=== PATIENT | female | born 1930 | race Caucasian/White ===

== ENCOUNTER 2019-02-13 17:38 | Inpatient (IN) | payer OTHER, BC ==
--- NOTE | 2019-02-13 19:16 | PDOC ---
History of Present Illness - General Chief Complaint: Shortness of Breath Stated Complaint: SHORTNES OF BREATH Time Seen by Provider: 02/13/19 19:16 History Source: Patient, Family - History of Present Illness Initial Comments: 02/13/19 19:57 Patient is an 88 year old female with PMH of CHF (diagnosed in May 2018), Afib (on eliquis), DMII, HTN, HLD, dementia, depression who presents with SOB, ENRIQUE, and orthopnea since yesterday. At baseline, pt lives at home with her and is able to ambulate and complete ADLs on her own. Yesterday evening , after Thanksgiving dinner, pt became progressively short of breath and began complaining of epigastric pain. Today, pt was unable to ambulate >10 feet without stopping to catch her breath. Her son at bedside reports that she could not complete full sentences. She requires at least two pillows when laying down , or turns to her side to prevent dyspnea. She has BL LE swelling at baseline, but pt and her son report her legs are more swollen that usual. Pt also complains of epigastric pain that is dull and constant. She denies any chest pain, palpitations, lightheadedness, fever, nausea, vomiting. Pt was diagnosed with CHF in May after having a similar episode. Lehr Operator is Dr. Alexander (last seen 3 months ago). She takes 40mg lasix daily, however she has not taken her meds for 2 days because she "forgot". She has not had any hospitalizations for CHF since her diagnosis. Denies hx of AK, stroke, DVT, PE. Surgeries: denies Allergies: NKDA PCP: Dr. Santiago Cardio: Dr. Alexander Past History - Past Medical History Allergies/Adverse Reactions: Allergies Allergy/AdvReac Type Severity Reaction Status Date / Time No Known Allergies Allergy Verified 02/14/19 00:17 Home Medications: Ambulatory Orders Alprazolam 0.25 mg PO HS 02/14/19 Apixaban [Eliquis] 5 mg PO BID 02/14/19 Diltiazem HCl [Diltiazem 24Hr ER] 240 mg PO DAILY 02/14/19 Donepezil HCl [Aricept -] 10 mg PO DAILY 02/14/19 Glimepiride [Amaryl -] 4 mg PO BID 02/14/19 Lisinopril [Prinivil] 5 mg PO DAILY 02/14/19 Metformin HCl [Glucophage] 500 mg PO BID 02/14/19 Potassium Chloride [K-Tab ER] 20 meq PO BID 02/14/19 Saxagliptin HCl [Onglyza] 5 mg PO DAILY 02/14/19 Sertraline HCl [Zoloft -] 50 mg PO BID 02/14/19 Azithromycin 250 mg PO DAILY 2 Days #2 tablet 02/16/19 Cefpodoxime Proxetil [Vantin -] 200 mg PO Q12H 2 Days #4 tablet 02/16/19 Furosemide [Lasix -] 40 mg PO BID@0600,1400 #60 tablet 02/16/19 Cardiac Disorders: Yes COPD: No Diabetes: Yes HTN: Yes Hypercholesterolemia: Yes - Psycho Social/Smoking Cessation Hx Smoking History: Never smoked Review of Systems - Review of Systems Able to Perform ROS?: Yes Is the patient limited Turkmen proficient: Yes Constitutional: No: Symptoms Reported, See HPI, Chills, Diaphoresis, Fever, Loss of Appetite, Malaise, Night Sweats, Weakness, Weight Stable, Unintentional Wgt. Loss, Unexplained wgt Loss, Other HEENTM: No: Symptoms Reported, See HPI, Eye Pain, Blurred Vision, Tearing, Recent change in vision, Double Vision, Cataracts, Ear Pain, Ocular Prothesis, Ear Discharge, Nose Pain, Nose Congestion, Tinnitus, Nose Bleeding, Hearing Loss , Throat Pain, Throat Swelling, Mouth Pain, Dental Problems, Difficulty Swallowing, Mouth Swelling, Other Respiratory: Yes: Orthopnea, Shortness of Breath, SOB with Exertion, SOB at Rest. No: Symptoms reported, See HPI, Cough, Stridor, Wheezing, Productive cough, Hemoptysis, Other Cardiac (ROS): Yes: Edema. No: Symptoms Reported, See HPI, Chest Pain, Irregular Heart Rate, Lightheadedness, Palpitations, Syncope, Chest Tightness, Other ABD/GI: Yes: Abdominal cramping. No: Symptoms Reported, See HPI, Abdominal Distended, Abd. Pain w/ defecation, Blood Streaked Bowels (epigastric), Constipated, Diarrhea, Difficulty Swallowing, Nausea, Poor Appetite, Poor Fluid Intake, Rectal Bleeding, Vomiting, Indigestion, Tarry Stools, Other Musculoskeletal: No: Symptoms Reported, See HPI, Back Pain, Gout, Joint Pain, Joint Swelling, Muscle Pain, Muscle Weakness, Neck Pain, Joint Stiffness, Other Neurological: No: Symptoms reported, See HPI, Headache, Numbness, Paresthesia, Pre-Existing Deficit, Seizure, Tingling, Tremors, Weakness, Unsteady Gait, Ataxia, Dizziness, Other *Physical Exam - Vital Signs Last Vital Signs Temp Pulse Resp BP Pulse Ox 97.8 F 122 H 18 156/99 98 02/13/19 17:53 02/13/19 17:53 02/13/19 17:53 02/13/19 17:53 02/13/19 17:53 - Physical Exam General Appearance: Yes: Nourished, Appropriately Dressed. No: Apparent Distress HEENT: positive: EOMI, MACK, Normal ENT Inspection, Normal Voice, Symmetrical, Pharynx Normal Neck: positive: Trachea midline, Normal Thyroid, Supple. negative: Tender Respiratory/Chest: positive: Crackles, Wheezing, Dullness. negative: Chest Tender, Respiratory Distress, Accessory Muscle Use Cardiovascular: positive: Edema, JVD, Murmur, Tachycardia Vascular Pulses: Dorsalis-Pedis (R): 2+, Doralis-Pedis (L): 2+ Gastrointestinal/Abdominal: positive: Normal Bowel Sounds, Tender (epigastric), Soft. negative: Distended, Hepatomegaly Musculoskeletal: negative: CVA Tenderness Extremity: positive: Pedal Edema (3+), Other (Chronic skin changes, discoloration). negative: Calf Tenderness Neurologic: positive: striker out II-XII NML intact. negative: Fully Oriented (Dementia ) ED Treatment Course - LABORATORY CBC & Chemistry Diagram: 02/16/19 06:20 02/16/19 06:20 Medical Decision Making - Medical Decision Making 02/13/19 20:21 >> Acute CHF exacerbation. - CXR - EKG, cardiac profile - CBC, CMP - Give IV lasix 02/13/19 21:22 EKG: Afib w/RVR CXR: congestion and increased opacification in left lung, possible infiltrate BNP: 10,696 Trop: 0.14, will trend Cr: 1.5 AST/ALT: 127/144 Alk P: 138 Differential dx: medication noncompliance CHF exacerbation, renal failure, AK, pulmonary congestion, infection such as pneumonia. >>Give the patient aspirin 162, diltiazem 15 mg IV push for her A. fib with RVR >>Was also given Lasix 40 mg IV >>Will give the patient her base dose of Eliquis that she has not taken it of 5 mg >>Will give ceftriaxone/azithromycin fro empiric pna coverage Requires admission for CHF exacerbation likely secondary to medication noncompliance and secondary A. fib with RVR 02/13/19 21:39 Discharge - Discharge Information Problems reviewed: Yes Clinical Impression/Diagnosis: Cellulitis Qualifiers: Site of cellulitis: unspecified site Qualified Code(s): L03.90 - Cellulitis, unspecified Condition: Improved Disposition: HOME - Admission Yes - Follow up/Referral - Patient Discharge Instructions - Post Discharge Activity
[2019-02-13] MEDS ORDERED: FUROSEMIDE 40 MG/4 ML INJECTABLE VIAL IVPUSH ONE (19:54)
[2019-02-13] MEDS ORDERED: FUROSEMIDE 40 MG/4 ML INJECTABLE VIAL ONE (20:08)
[2019-02-13 20:39] LABS: BASO % 0.2 % (0-2.0); HEMATOCRIT 32.5 % (32.4-45.2); HEMOGLOBIN 10.4 GM/dL (10.7-15.3); LYMPH % 5.4 % (8-40); MCH 26.9 pg (25.7-33.7); MCHC 31.9 g/dl (32.0-36.0); MEAN CELL VOLUME 84.4 fl (80-96); MEAN PLT VOLUME 9.1 fl (7.5-11.1); MONO % 3.7 % (3.8-10.2); NEUT % 90.7 % (42.8-82.8); PLATELET COUNT 265 K/MM3 (134-434); RBC 3.85 M/mm3 (3.60-5.2); RDW 15.8 % (11.6-15.6); WHITE BLOOD COUNT 9.8 K/mm3 (4.0-10.0)
[2019-02-13 21:06] LABS: ALBUMIN 3.3 g/dl (3.4-5.0); BILIRUBIN,TOTAL 0.9 mg/dL (0.2-1); BLOOD UREA NITROGEN 43.8 mg/dL (7-18); CREATININE 1.5 mg/dL (0.55-1.3); N-TERMINAL BNP 10696.6 pg/ml (5-450); POTASSIUM 4.8 mmol/L (3.5-5.1)
[2019-02-13] MEDS ORDERED: dilTIAZem HCL 50 MG/10 ML - 10 ML VIAL IVPUSH ONE (21:09)
[2019-02-13] MEDS ORDERED: INSULIN REGULAR HUMAN 100 UNITS/ML *VIAL IVPUSH ONE (21:27)
--- NOTE | 2019-02-13 21:30 | PDOC ---
Documentation entered by Hai Arteaga SCRIBE, acting as scribe for Jamila Duke MD. Jamila Duke MD: This documentation has been prepared by the Chandler wolf Daniel, SCRIBE, under my direction and personally reviewed by me in its entirety. I confirm that the documentation accurately reflects all work, treatment, procedures, and medical decision making performed by me. Attending Attestation - Resident Resident Name: Liane Lee - ED Attending Attestation I have performed the following: I have examined & evaluated the patient, The case was reviewed & discussed with the resident, I agree w/resident's findings & plan, Exceptions are as noted - HPI HPI: 02/13/19 19:51 The patient is an 88 year old female with a past medical history of CHF, HTN, HLD, diabetes, dementia, and questionable afib here today for evaluation of shortness of breath. As per the patients son, the patient was short of breath yesterday which worsened today. He notes that she has dyspnea on exertion and is unable to move from room to room without becoming short of breath. Patient also notes orthopnea and some upper abdominal pain. no h/o tobacco use. Allergies: NKA PCP: Lee Santiago Fios Line Installer: Marilyn Alexander 02/13/19 21:33 - Physicial Exam PE: 02/13/19 21:26 awake alert lungs with crackles at bases. increased work of breathng mild tachypnea, mild suprasternal retraction, hear irreg tachycardia. no mrg. abd soft nt nd ext bilat piting edemea. 3 + nueor alert oriented x 3. - Medical Decision Making 02/13/19 21:27 You have been no further in the something is midline and a chest x-ray 88-year- old female history of A. fib hypertension CHF here today with worsening shortness of breath exertional dyspnea orthopnea and increased work of breathing. Patient has had worsening leg edema states that she has not taken her meds for the last 48 hours did overindulge yesterday during giving today states that she was having a hard time speaking even completing sentences at which time she came to the hospital. Denies any fevers and chills no cough no chest pain no other current complaints next. no h/o pe or dvt. My exam patient has bilateral crackles at the lung bases and noted 3+ pitting edema bilateral lower extremities was found to be in A. fib with RVR with heart rate in 148 Differential includes medication noncompliance CHF exacerbation lecture abnormality renal failure SD pulmonary congestion infection such as pneumonia. Plan EKG chest x-ray CBC CMP BNP troponin. Give the patient aspirin 162 was given diltiazem 15 mg IV push for her A. fib with RVR was also given Lasix 40 mg IV will give the patient her base dose of Eliquis that she has not taken it of 5 mg will likely require admission for CHF exacerbation likely secondary to medication noncompliance and secondary A. fib with RVR pcp dr urias. biometrics instructor dr Rosas 02/13/19 21:32 pt cxr with pulm edema. also increased opacification left lung possible infiltrate. will treat with abx. ceftriaxone and azithromycin. 02/13/19 21:33 Heart Score/ECG Review #1 General ECG Interpretation: Normal Intervals, No acute ischemic changes Compared to previous ECG there are: Other (afib with RVR rate 144 bpm, left axis. TWI I, AVL,)
[2019-02-13] MEDS ORDERED: AZITHROMYCIN IVPB 500 MG/250 ML BAG IVPB ONE ×2 (21:35→21:46)
[2019-02-13] MEDS ORDERED: CEFTRIAXONE 1 G/50 ML PREMIX 50 ML IVPB ONE (21:35)
[2019-02-13] MEDS ORDERED: APIXABAN 5 MG TABLET PO ONE (21:38)
[2019-02-13] MEDS ORDERED: APIXABAN 5 MG TABLET ONE (21:46)
[2019-02-13] MEDS ORDERED: ASPIRIN COATED 81 MG TABLET.EC ONE (21:46)
[2019-02-13] MEDS ORDERED: CEFTRIAXONE 1 GM/50 ML BAG ONE (21:47)
[2019-02-13] MEDS ORDERED: dilTIAZem HCL 125 MG/25 ML - 25 ML VIAL ONE (21:54)
[2019-02-13] MEDS: ASPIRIN COATED 81 MG TABLET.EC PO SCH (22:14)
--- NOTE | 2019-02-13 22:58 | HP ---
CHIEF COMPLAINT: Per Family: Increased weakness+SOB PCP: Dr Lee Santiago HISTORY OF PRESENT ILLNESS: Pt is an 88 y/o F with a significant past medical history of CHF (diagnosed in May 2018), Afib (on eliquis), DMII, HTN, HLD, dementia, depression who presents with SOB, ENRIQUE, and orthopnea since yesterday. Per son (healthcare proxy ) at bedside, pt since yesterday has not been able to walk to the bathroom on her own or walk up the stairs in her home; normally patient is able to do so. Family endorses that patient was hospitalized in May of this year at [facility] for similar symptoms. Of note, pt has bilateral LE edema at baseline, however her son reports that pt's legs are more swollen than usual. ER course was notable for: (1) A-Fib w/ RVR, Incomplete RBBB, Left anterior fascicular block, Vent rate 144 , QTc 498. (2) Diltiazem 15 ivpush (3) PAST MEDICAL HISTORY: per above PAST SURGICAL HISTORY: Social History: Smoking: denies Alcohol:denies Drugs: denies Allergies No Known Allergies Allergy (Unverified 02/13/19 17:58) HOME MEDICATIONS: Home Medications Medication Instructions Recorded Nifedipine 20 mg PO capsule 07/27/13 Pioglitazone Hcl 45 mg PO tablet 07/27/13 Saxagliptin HCl [Onglyza] 5 mg PO tablet 07/27/13 Sertraline HCl 25 mg PO DAILY #7 tablet 07/27/13 Valsartan [Diovan] 40 mg PO tablet 07/27/13 REVIEW OF SYSTEMS Unable to obtain 2/2 patient's mental status PHYSICAL EXAMINATION Vital Signs - 24 hr 02/13/19 02/13/19 02/13/19 17:53 19:58 21:58 Temperature 97.8 F Pulse Rate 122 H Pulse Rate [ 143 H 149 H Right Radial] Respiratory 18 19 16 Rate Blood Pressure 156/99 Blood Pressure 155/134 H 153/113 H [Left Arm] O2 Sat by Pulse 98 95 95 Oximetry (%) GENERAL: NAD HEAD: Normal with no signs of trauma. EYES: EOMI Sclera Clear EARS, NOSE, THROAT: MMM NECK: +++ JVD. LUNGS: Crackles left base HEART: Irregularly irregular, S1S2. ABDOMEN: Soft NDNT LOWER EXTREMITIES: 3+ pitting edema b/l SKIN: Warm, dry, normal turgor, no rashes or lesions noted, normal capillary refill. Laboratory Results - last 24 hr 02/13/19 02/13/19 02/13/19 20:23 20:23 20:23 WBC 9.8 RBC 3.85 Hgb 10.4 L Hct 32.5 MCV 84.4 MCH 26.9 MCHC 31.9 L RDW 15.8 H Plt Count 265 MPV 9.1 Absolute Neuts (auto) 8.9 H Neutrophils % 90.7 H Lymphocytes % 5.4 L Monocytes % 3.7 L Eosinophils % 0.0 Basophils % 0.2 Nucleated RBC % 0 Sodium 142 Potassium 4.8 Chloride 109 H Carbon Dioxide 19 L Anion Gap 14 BUN 43.8 H Creatinine 1.5 H Est GFR (CKD-EPI)AfAm 35.93 Est GFR (CKD-EPI)NonAf 31.00 Random Glucose 373 H Calcium 9.0 Total Bilirubin 0.9 AST 127 H ALT 144 H Alkaline Phosphatase 138 H Creatine Kinase 89 Troponin I 0.14 H B-Natriuretic Peptide 27643.6 H Total Protein 7.0 Albumin 3.3 L ASSESSMENT/PLAN: Pt is an 88 y/o F with a significant past medical history of CHF (diagnosed in May 2018), Afib (on eliquis), DMII, HTN, HLD, dementia, depression who presents with SOB, ENRIQUE, and orthopnea since yesterday. Acute exacerbation of dCHF 2/2 A-Fib w/ RVR -BNP 94608 -Echocardiogram -Repeat EKG -Beck insertion to monitor Is and Os -Will hold diltiazem and start a beta florina Coreg 3.25 BID. -Liver U/S to assess for etiology of elevated liver enzymes. May be secondary to dCHF or intrinsic liver disease. -1st trop 0.14. will trend. -Will place on 40 I.V Lasix -Cardiology consult. Appreciate recs. -ABG -Wells Score 1.5, very low probability of PE. -Will also add on Tylenol and Alcohol level as this is patient's first admission to hospital and cannot rule anything out at this juncture. #Atrial Fibrillation -Resume Eliquis -Tele monitoring #DM -ISS # Possible Community Acquired Pneumonia-Left Lung Infiltrate -Received Cef+Azithro in ED. -Will continue on Cef+Azithro -BCX -Urine Legionella #FEN -No Fluids -Monitor Electrolytes -Sodium Controlled Diet DVT ppx: Eliquis Dispo Tele Visit type - Emergency Visit Emergency Visit: Yes ED Registration Date: 02/13/19 Care time: The patient presented to the Emergency Department on the above date and was hospitalized for further evaluation of their emergent condition. - New Patient This patient is new to me today: Yes Date on this admission: 02/14/19 - Critical Care Critical Care patient: No ATTENDING PHYSICIAN STATEMENT I saw and evaluated the patient. I reviewed the resident's note and discussed the case with the resident. I agree with the resident's findings and plan as documented. SUBJECTIVE: OBJECTIVE: ASSESSMENT AND PLAN:
--- NOTE | 2019-02-13 23:28 | PN ---
Teaching Attending Note Name of Resident: oRmie Huerta ATTENDING PHYSICIAN STATEMENT I saw and evaluated the patient. I reviewed the resident's note and discussed the case with the resident. I agree with the resident's findings and plan as documented. SUBJECTIVE: 88 year old female with a past medical history of CHF, HTN, HLD, diabetes, dementia, and afib here today for evaluation of shortness of breath. As per the patients son, the patient was short of breath yesterday which worsened today. He notes that she has dyspnea on exertion and is unable to move from room to room without becoming short of breath. Patient also notes orthopnea and some upper abdominal pain. no h/o tobacco use. OBJECTIVE: Last Vital Signs Temp Pulse Resp BP Pulse Ox 97.8 F 149 H 16 153/113 H 95 02/13/19 17:53 02/13/19 21:58 02/13/19 21:58 02/13/19 21:58 02/13/19 21:58 GENERAL: Well developed, well nourished. Awake and alert. No acute distress.Appears to be very hard of hearing on exam HEENT: Normocephalic, atraumatic. PERRLA, EOMI. No conjunctival pallor. Sclera are non- icteric. Moist mucous membranes. Oropharynx is clear. NECK: Supple. Full ROM. No JVD. Carotid pulses 2+ and symmetric, without bruits. No thyromegaly. No lymphadenopathy. CARDIOVASCULAR: Regular rate and rhythm. No murmurs, rubs, or gallops. Distal pulses are 2+ and symmetric. PULMONARY: No evidence of respiratory distress. Lungs clear to auscultation bilaterally. No wheezing, rales or rhonchi. ABDOMINAL: Soft. Non-tender. Non-distended. No rebound or guarding. No organomegaly. Normoactive bowel sounds. MUSCULOSKELETAL Normal range of motion at all joints. No bony deformities or tenderness. No CVA tenderness. EXTREMITIES: Bilateral pedal edema2+ up to knees SKIN: Warm and dry. Normal capillary refill. No rashes. No jaundice. PSYCHIATRIC: Cooperative. Good eye contact. Appropriate mood and affect. Abnormal Lab Results 02/13/19 02/13/19 02/13/19 20:23 20:23 20:23 Hgb 10.4 L MCHC 31.9 L RDW 15.8 H Absolute Neuts (auto) 8.9 H Neutrophils % 90.7 H Lymphocytes % 5.4 L Monocytes % 3.7 L Chloride 109 H Carbon Dioxide 19 L BUN 43.8 H Creatinine 1.5 H Random Glucose 373 H AST 127 H ALT 144 H Alkaline Phosphatase 138 H Troponin I 0.14 H B-Natriuretic Peptide 95631.6 H Albumin 3.3 L Imaging studies reviewed EKGA. fib with RVR, no acute ischemic changes noted ASSESSMENT AND PLAN: 88-year-old woman with shortness of breath may be secondary to committee acquired pneumonia. Found to have large left lung opacity on chest x-ray which is likely an infectious infiltrate. Possible CHF exacerbation as patient is noted to have history of CHF. A. fib with RVR On anticoagulation at home. Elevated troponin may be secondary to demand ischemia from pneumonia or A. fib with RVR. ACS should be ruled out as patient is high risk. Admit to telemetry Carvedilol 6 mg p.o. twice daily For rate control as well as CHF management Transthoracic echono baseline echo noted Trend troponin Cardiology evaluation Continue home dose Eliquis Furosemide 40 mg IV Twice daily Salt and free water restriction SAY inhibitor #Community acquired pneumonia with left-sided infiltrate Sputum culture Blood cultures Azithromycin and ceftriaxone Supplemental oxygen via nasal cannula #DAYAN versus CKDno baseline renal function to compare to Avoid IV fluids Avoid nephrotoxins Trend renal function Renal sonogram #Transaminitismay be secondary to hepatic congestion from CHF. Should rule out alternative causes such was EtOH, Tylenol, viral hepatitis, alcoholic fatty liver disease Liver sonogram Viral hepatitis serologies Hepatic panel repeat Avoid hepatotoxins #DVT prophylaxisPatient already on Eliquis
[2019-02-14 05:47] VITALS: BMI 23.5
[2019-02-14] MEDS: FUROSEMIDE 40 MG/4 ML INJECTABLE VIAL IVPUSH SCH ×2 (06:26→10:22)
[2019-02-14] MEDS: INSULIN SLIDING SCALE (NOVOLOG) 1 VIAL SQ SCH ×4 (06:33→21:30)
[2019-02-14 06:41] LABS: ARTERIAL BLD GAS O2 SATURATION 89.9 % (95-98); ARTERIAL BLOOD GAS BASE EXCESS -2.5 meq/l (-2-2); ARTERIAL BLOOD GAS PCO2 26.6 mmHg (35-45); ARTERIAL BLOOD GAS PO2 59.3 mmHg (80-100); ARTERIAL BLOOD GAS pH 7.48 (7.35-7.45)
[2019-02-14 06:45] LABS: ALLENS TEST POSITIVE
[2019-02-14 08:01] LABS: BASO % 0.5 % (0-2.0); HEMATOCRIT 31.8 % (32.4-45.2); HEMOGLOBIN 10.2 GM/dL (10.7-15.3); LYMPH % 9.1 % (8-40); MCH 26.6 pg (25.7-33.7); MCHC 32.1 g/dl (32.0-36.0); MEAN CELL VOLUME 82.8 fl (80-96); MONO % 5.3 % (3.8-10.2); NEUT % 85.1 % (42.8-82.8); PLATELET COUNT 257 K/MM3 (134-434); RBC 3.84 M/mm3 (3.60-5.2); RDW 15.3 % (11.6-15.6); WHITE BLOOD COUNT 9.7 K/mm3 (4.0-10.0)
[2019-02-14 08:03] LABS: INR 1.71 (0.83-1.09); PROTHROMBIN TIME (PATIENT) 20.3 SEC (9.7-13.0)
[2019-02-14 08:06] LABS: ACTIVATED PTT 32.8 SECONDS (25.2-36.5)
--- NOTE | 2019-02-14 08:07 | CON.CARD ---
Consult Consult Specialty:: cardio - History of Present Illness Chief Complaint: sob History of Present Illness: 88 y/o F here with sob reports 2d of SOB, ENRIQUE, and orthopnea. unable to walk to bathroom unassisted or on stairs at home due to ENRIQUE. increase in chronic LE edema BP and HR uncontrolled in ER recent dx of CHF earlier this year--admitted at [facility] denies sob presently. denies cp, palp, syncope PMH: AFib HTN DM HPL dementia depression - Alcohol/Substance Use Hx Alcohol Use: No - Smoking History Smoking history: Never smoked Home Medications - Allergies Allergies/Adverse Reactions: Allergies Allergy/AdvReac Type Severity Reaction Status Date / Time No Known Allergies Allergy Verified 02/14/19 00:17 - Home Medications Home Medications: Ambulatory Orders Alprazolam 0.25 mg PO HS 02/14/19 Apixaban [Eliquis] 5 mg PO BID 02/14/19 Diltiazem HCl [Diltiazem ER] 240 mg PO DAILY 02/14/19 Donepezil HCl [Aricept -] 10 mg PO DAILY 02/14/19 Furosemide [Lasix -] 40 mg PO DAILY 02/14/19 Glimepiride [Amaryl -] 4 mg PO BID 02/14/19 Lisinopril [Prinivil] 5 mg PO DAILY 02/14/19 Metformin HCl [Glucophage] 500 mg PO BID 02/14/19 Potassium Chloride [K-Tab ER] 20 meq PO BID 02/14/19 Saxagliptin HCl [Onglyza] 5 mg PO DAILY 02/14/19 Sertraline HCl [Zoloft -] 50 mg PO BID 02/14/19 Family Medical History Family History: Denies (no known cmp) Review of Systems - Review of Systems Constitutional: denies: Chills, Fever Eyes: denies: Eye Pain HENT: denies: Nasal Congestion Neck: denies: Stiffness Cardiovascular: denies: Palpitations Respiratory: reports: Orthopnea. denies: Hemoptysis, Wheezing Gastrointestinal: denies: Diarrhea, Rectal Bleeding Genitourinary: denies: Burning, Hematuria Musculoskeletal: denies: Muscle Pain Integumentary: denies: Rash Neurological: denies: Numbness, Seizure, Syncope Endocrine: denies: Excessive Sweating Hematology/Lymphatic: denies: Excessive Bleeding Vital Signs: Vital Signs Temperature 97.8 F 02/14/19 03:35 Pulse Rate 125 H 02/14/19 05:47 Respiratory Rate 21 H 02/14/19 05:47 Blood Pressure 172/101 H 02/14/19 05:47 O2 Sat by Pulse Oximetry (%) 96 02/14/19 03:35 Constitutional: Yes: Well Nourished, No Distress Eyes: No: Sclera Icterus HENT: No: Nasal Congestion Neck: No: Decreased ROM Respiratory: Yes: Rales (L > R base), Wheezes (faint, L base). No: Accessory Muscle Use Gastrointestinal: Yes: Normal Bowel Sounds. No: Distention, Hepatomegaly, Palpable Mass, Tenderness Renal/: Yes: Urethral Discharge Cardiovascular: Yes: Regular Rate and Rhythm, Pulse Irregular JVD: Yes Carotid Bruit: No PMI: Non-Displaced Heart Sounds: Yes: S1, S2. No: Gallop Murmur: No: Systolic Murmur, Diastolic Murmur Musculoskeletal: Yes: Other (No kyphosis) Extremities: No: Cool, Cyanosis Edema: No Peripheral Pulses: 2+ Left Carotid, 2+ Right Carotid, 2+ Left Doralis Pedis, 2+ Right Dorsalis Pedis Integumentary: No: Jaundice Neurological: Yes: Alert. No: Seizure Psychiatric: No: Agitated - Other Data Labs, Other Data: Troponin, BNP 02/13/19 02/13/19 20:23 20:23 Troponin I 0.14 H B-Natriuretic Peptide 29141.6 H Troponin, BNP 02/13/19 02/13/19 20:23 20:23 Troponin I 0.14 H B-Natriuretic Peptide 24447.6 H Assessment/Plan ECG: AF, LAFB, LVH with repol abnormality, PVC. no ischemic changes CXR: congestive changes, L infiltrate, no effusions tele: AF 100s-120s, freq PVCs, freq NSVT acute CHF, L lung infiltrate: -prior echo, type of CHF unknown--suspect systolic given carvedilol/lisinopril regimen at home -BNP 10K here -no known CAD history. trop 0.14--f/u serial trend. ECG non-ischemic -normal temps, WBC--observe infiltrate with diuresis -start lasix 40 IV daily--monitor wts, phys exam renal insufficiency: -bun/creat 43/1.5, no baseline data currently available. will check office records -suspect cardiorenal syndrome contributing--observe trend with diuresis elevated transmainases: -? hepatic congestion -observe trend with diuresis -further w/u and plan per hospitalist Afib: -rapid HR here, ? triggering CHF -aggressive rate control: titrate carvedilol up as bp allows (9.375 bid)) -if remains rapid will change to metoprolol for better control -cont home Eliquis (5 bid)--if creatinine remains > 1.5 will need to reduce dose to 2.5 prior to discharge HTN: -titrating carvedilol (also for AF control) -same home lisinopril dose for now
[2019-02-14 08:09] LABS: ALBUMIN 3.3 g/dl (3.4-5.0); BILIRUBIN,TOTAL 0.8 mg/dL (0.2-1); BLOOD UREA NITROGEN 51.2 mg/dL (7-18); CALCIUM 8.6 mg/dL (8.5-10.1); CREATININE 1.5 mg/dL (0.55-1.3); MAGNESIUM 2.1 mg/dL (1.8-2.4); PHOSPHOROUS 4.8 mg/dL (2.5-4.9); POTASSIUM 4.8 mmol/L (3.5-5.1); TOT PROT 6.7 g/dl (6.4-8.2)
[2019-02-14] MEDS ORDERED: CARVEDILOL 6.25 MG TABLET (FP) PO SCH (10:00)
[2019-02-14] MEDS ORDERED: CARVEDILOL 3.125 MG TABLET (FP) PO SCH ×2 (10:00→10:27)
[2019-02-14] MEDS: SERTRALINE HCL 50 MG TABLET (FP) PO SCH ×2 (10:21→21:23)
[2019-02-14] MEDS: LISINOPRIL 5 MG TABLET (FP) PO SCH (10:21)
[2019-02-14] MEDS: APIXABAN 5 MG TABLET PO SCH ×2 (10:21→21:27)
[2019-02-14] MEDS: ASPIRIN COATED 81 MG TABLET.EC PO SCH (10:21)
[2019-02-14] MEDS ORDERED: CARVEDILOL 12.5 MG TABLET (FP) PO SCH (10:26)
[2019-02-14] MEDS ORDERED: INSULIN (NOVOLOG) ASPART 100 UNITS/ML 10ML VIAL ONE (11:32)
--- NOTE | 2019-02-14 14:08 | PN ---
Progress Note (short form) - Note Progress Note: SUBJECTIVE: Feels well - no complaints. Denies cough/sputum/CP/palpitations/SOB. OBJECTIVE: Afebrile, Hemodynamically Stable. AAO x 2. Last Vital Signs Temp Pulse Resp BP Pulse Ox 97.4 F L 111 H 21 H 134/92 96 02/14/19 10:00 02/14/19 10:00 02/14/19 10:00 02/14/19 10:00 02/14/19 09:00 HEENT - Atraumatic, Normocephalic. Heart - S1, S2, irregular Lungs - good air entry bilaterally Abdomen - soft, non-tender. Bowel Sounds normal. Extremities - chronic venous stasis with skin changes, edema ++ Laboratory Results - last 24 hr 02/13/19 02/13/19 02/13/19 20:23 20:23 20:23 WBC 9.8 RBC 3.85 Hgb 10.4 L Hct 32.5 MCV 84.4 MCH 26.9 MCHC 31.9 L RDW 15.8 H Plt Count 265 MPV 9.1 Absolute Neuts (auto) 8.9 H Neutrophils % 90.7 H Lymphocytes % 5.4 L Monocytes % 3.7 L Eosinophils % 0.0 Basophils % 0.2 Nucleated RBC % 0 PT with INR INR PTT (Actin FS) Anticoagulation Therapy Puncture Site ABG pH ABG pCO2 at Pt Temp ABG pO2 at Pt Temp ABG HCO3 ABG O2 Sat (Measured) ABG O2 Content ABG Base Excess Erne Test O2 Delivery Device Oxygen Flow Rate Vent Mode Vent Rate Mechanical Rate Pressure Support Vent Sodium 142 Potassium 4.8 Chloride 109 H Carbon Dioxide 19 L Anion Gap 14 BUN 43.8 H Creatinine 1.5 H Est GFR (CKD-EPI)AfAm 35.93 Est GFR (CKD-EPI)NonAf 31.00 POC Glucometer Random Glucose 373 H Calcium 9.0 Phosphorus Magnesium Total Bilirubin 0.9 AST 127 H ALT 144 H Alkaline Phosphatase 138 H Creatine Kinase 89 Troponin I 0.14 H B-Natriuretic Peptide 92997.6 H Total Protein 7.0 Albumin 3.3 L Acetaminophen Alcohol, Quantitative 02/14/19 02/14/19 02/14/19 06:00 06:00 06:05 WBC 9.7 RBC 3.84 Hgb 10.2 L Hct 31.8 L MCV 82.8 MCH 26.6 MCHC 32.1 RDW 15.3 Plt Count 257 MPV 9.0 Absolute Neuts (auto) 8.3 H Neutrophils % 85.1 H Lymphocytes % 9.1 D Monocytes % 5.3 Eosinophils % 0.0 Basophils % 0.5 Nucleated RBC % 0 PT with INR INR PTT (Actin FS) Anticoagulation Therapy Puncture Site ABG pH ABG pCO2 at Pt Temp ABG pO2 at Pt Temp ABG HCO3 ABG O2 Sat (Measured) ABG O2 Content ABG Base Excess Rene Test O2 Delivery Device Oxygen Flow Rate Vent Mode Vent Rate Mechanical Rate Pressure Support Vent Sodium Potassium Chloride Carbon Dioxide Anion Gap BUN Creatinine Est GFR (CKD-EPI)AfAm Est GFR (CKD-EPI)NonAf POC Glucometer Random Glucose Calcium Phosphorus Magnesium Total Bilirubin AST ALT Alkaline Phosphatase Creatine Kinase Troponin I B-Natriuretic Peptide Total Protein Albumin Acetaminophen <10 Alcohol, Quantitative < 3 02/14/19 02/14/19 02/14/19 06:05 06:05 06:25 WBC RBC Hgb Hct MCV MCH MCHC RDW Plt Count MPV Absolute Neuts (auto) Neutrophils % Lymphocytes % Monocytes % Eosinophils % Basophils % Nucleated RBC % PT with INR 20.30 H INR 1.71 H PTT (Actin FS) 32.8 Anticoagulation Therapy No Result Required. Puncture Site Right brachial ABG pH 7.48 H ABG pCO2 at Pt Temp 26.6 L ABG pO2 at Pt Temp 59.3 L ABG HCO3 19.7 L ABG O2 Sat (Measured) 89.9 L ABG O2 Content 12.6 ABG Base Excess -2.5 L Rene Test Positive O2 Delivery Device N/c Oxygen Flow Rate 3l Vent Mode No Result Required. Vent Rate No Result Required. Mechanical Rate No Result Required. Pressure Support Vent No Result Required. Sodium 140 Potassium 4.8 Chloride 109 H Carbon Dioxide 21 Anion Gap 11 BUN 51.2 H Creatinine 1.5 H Est GFR (CKD-EPI)AfAm 35.93 Est GFR (CKD-EPI)NonAf 31.00 POC Glucometer Random Glucose 339 H Calcium 8.6 Phosphorus 4.8 Magnesium 2.1 Total Bilirubin 0.8 AST 143 H ALT 163 H Alkaline Phosphatase 127 H Creatine Kinase Troponin I 0.22 H B-Natriuretic Peptide Total Protein 6.7 Albumin 3.3 L Acetaminophen Alcohol, Quantitative 02/14/19 02/14/19 06:28 11:28 WBC RBC Hgb Hct MCV MCH MCHC RDW Plt Count MPV Absolute Neuts (auto) Neutrophils % Lymphocytes % Monocytes % Eosinophils % Basophils % Nucleated RBC % PT with INR INR PTT (Actin FS) Anticoagulation Therapy Puncture Site ABG pH ABG pCO2 at Pt Temp ABG pO2 at Pt Temp ABG HCO3 ABG O2 Sat (Measured) ABG O2 Content ABG Base Excess Rene Test O2 Delivery Device Oxygen Flow Rate Vent Mode Vent Rate Mechanical Rate Pressure Support Vent Sodium Potassium Chloride Carbon Dioxide Anion Gap BUN Creatinine Est GFR (CKD-EPI)AfAm Est GFR (CKD-EPI)NonAf POC Glucometer 329 287 Random Glucose Calcium Phosphorus Magnesium Total Bilirubin AST ALT Alkaline Phosphatase Creatine Kinase Troponin I B-Natriuretic Peptide Total Protein Albumin Acetaminophen Alcohol, Quantitative Current Medications Generic Name Dose Route Start Last Admin Trade Name Freq PRN Reason Stop Dose Admin Alprazolam 0.25 mg 02/14/19 22:00 Xanax - PO HS DAVID Apixaban 5 mg 02/14/19 10:00 02/14/19 10:21 Eliquis - PO 5 mg BID DAVID Administration Aspirin 162 mg 02/13/19 21:45 02/14/19 10:21 Ecotrin - PO 162 mg DAILY DAVID Administration Carvedilol 9.375 mg 02/14/19 10:27 Coreg - PO BID DAVID Donepezil HCl 10 mg 02/14/19 22:00 Aricept - PO HS DAVID Furosemide 40 mg 02/14/19 05:19 02/14/19 10:22 Lasix Injection - IVPUSH Not Given DAILY DAVID Ceftriaxone Sodium 1 gm/ 50 mls @ 100 mls/hr 02/14/19 22:00 Dextrose IVPB 02/14/19 22:29 ONCE ONE Insulin Aspart 1 vial 02/14/19 07:00 02/14/19 12:41 Novolog Vial Sliding Scale - SQ 6 units ACHS DAVID Administration Protocol Insulin Detemir 10 units 02/14/19 22:00 Levemir Vial SQ HS DAVID Lisinopril 5 mg 02/14/19 10:00 02/14/19 10:21 Prinivil PO 5 mg DAILY DAVID Administration Sertraline HCl 50 mg 02/14/19 10:00 02/14/19 10:21 Zoloft - PO 50 mg BID DAVID Administration Home Medications Medication Instructions Recorded Alprazolam 0.25 mg PO HS 02/14/19 Apixaban [Eliquis] 5 mg PO BID 02/14/19 Diltiazem HCl [Diltiazem ER] 240 mg PO DAILY 02/14/19 Donepezil HCl [Aricept -] 10 mg PO DAILY 02/14/19 Furosemide [Lasix -] 40 mg PO DAILY 02/14/19 Glimepiride [Amaryl -] 4 mg PO BID 02/14/19 Lisinopril [Prinivil] 5 mg PO DAILY 02/14/19 Metformin HCl [Glucophage] 500 mg PO BID 02/14/19 Potassium Chloride [K-Tab ER] 20 meq PO BID 02/14/19 Saxagliptin HCl [Onglyza] 5 mg PO DAILY 02/14/19 Sertraline HCl [Zoloft -] 50 mg PO BID 02/14/19 ASSESSMENT/PLAN: 88 year old female with a past medical history of Dementia, CHF, HTN, HLD, DM 2 , Atrial fibrillation (on Eliquis), presented with worsening SOB and orthopnea. 1. Acute decompensation of CHF (unknown diastolic vs systolic) BNP > 10,000 CXR - cardiomegaly, congestive changes, L sided infiltrate. On Lasix 40mg daily at home, clams compliance. Responding to IV Lasix diuresis Stable respiratory status. Daily weight, I/Os. Echo requested On BB/SAY-I Cardio consult. 2. CAP CXR - L lung opacity/consolidation Afebrile, without leukocytosis Blood Cx pending Continue Ceftriaxone/Azithromycin Urine for legionella/strep Ag Sputum Cx. 3. Atrial fibrillation with RVR ECG - Atrial fibrillation with RVR, no acute changes. Continue to up-titrate Carvedilol as BP tolerates (need to clarify home med ?on cardizem at home) Continue Eliquis Troponin egression likely sec to demand due to RVR - will continue to trend. Further Ix as per Cardiology. 4. DAYAN vs CKD, suspect CKD Creat 1.5 - baseline Creat unknown Monitor renal function on IV Lasix (oral home dose Lasix held). Renal/Bladder US - normal. 5. Elevated Transaminases ?sec to Hepatic congestion US Abdomen - Mild hepatomegaly. Hepatitis panel pending. 6. Dementia with Depression - continue Alprazolam, Sertraline, Aricept. 7. DM 2 - hold Saxagliptin, Metformin, Glimepiride. Maintain on sliding scale Novolog - tier advanced due to high BGMs. 8. HTN - On Coreg and Lisinopril - continue. DVT Px - on Eliquis. Visit type - Emergency Visit Emergency Visit: Yes ED Registration Date: 02/13/19 Care time: The patient presented to the Emergency Department on the above date and was hospitalized for further evaluation of their emergent condition. - New Patient This patient is new to me today: Yes Date on this admission: 02/14/19 - Critical Care Critical Care patient: No - Discharge Referral Referred to [facility] Med P.C.: No
[2019-02-14] MEDS: ALPRAZolam 0.25 MG TABLET PO SCH (21:23)
[2019-02-14] MEDS: DONEPEZIL HCL 10 MG TABLET (FP) PO SCH (21:23)
[2019-02-14] MEDS: INSULIN (LEVEMIR) 100 UNITS/ML UNITS SQ SCH (21:27)
[2019-02-14] MEDS: AZITHROMYCIN IVPB 500 MG/250 ML BAG IVPB SCH (21:32)
[2019-02-14] MEDS ORDERED: cefTRIAXone SODIUM 1 GM VIAL ONE (21:57)
[2019-02-14] MEDS ORDERED: DEXTROSE 5%-WATER - 50 ML IVPB ONE (21:57)
[2019-02-14] MEDS ORDERED: CEFTRIAXONE 1 GM in DEXTROSE 5%-WATER - 50 ML IVPB ONE (22:00)
[2019-02-15] MEDS ORDERED: METOCLOPRAMIDE HCL 10 MG TABLET (FP) PO ONE (01:21)
[2019-02-15] MEDS: INSULIN SLIDING SCALE (NOVOLOG) 1 VIAL SQ SCH ×4 (06:01→22:31)
[2019-02-15 07:21] LABS: BLOOD UREA NITROGEN 61.2 mg/dL (7-18); CALCIUM 8.3 mg/dL (8.5-10.1); CREATININE 1.6 mg/dL (0.55-1.3); POTASSIUM 4.2 mmol/L (3.5-5.1)
[2019-02-15 08:27] LABS: ALBUMIN 2.8 g/dl (3.4-5.0); BILIRUBIN,DIRECT 0.2 mg/dL (0.0-0.2); BILIRUBIN,TOTAL 0.5 mg/dL (0.2-1); TOT PROT 6.1 g/dl (6.4-8.2)
--- NOTE | 2019-02-15 09:35 | PN ---
Progress Note, Physician Chief Complaint: sob History of Present Illness: dr kumari 12/30 note reviewed: wt at that time 136 lb reported "allergy" to toprol AF rates well controlled on diltiazem CD 240 qd. normal LVEF on echo 05/06 (mod MR). not on carvedilol. + lisinopril for HTN lasix 40 qd with residual venous insuff (no chf suspected then) presently: "i don't feel so great....my hemorrhoids are bothering me" denies sob. no cp, palp, syncope - Current Medication List Current Medications: Active Medications Alprazolam (Xanax -) 0.25 mg PO [facility] Last Admin: 02/14/19 21:23 Dose: 0.25 mg Apixaban (Eliquis -) 5 mg PO BID [facility] Last Admin: 02/14/19 21:27 Dose: 5 mg Carvedilol (Coreg -) 9.375 mg PO BID [facility] Last Admin: 02/14/19 21:23 Dose: 9.375 mg Donepezil HCl (Aricept -) 10 mg PO [facility] Last Admin: 02/14/19 21:23 Dose: 10 mg Furosemide (Lasix Injection -) 40 mg IVPUSH DAILY [facility] Last Admin: 02/14/19 10:22 Dose: Not Given Azithromycin (Zithromax 500mg Ivpb (Pre-Docked)) 500 mg in 250 mls @ 250 mls/ hr IVPB [facility] Last Admin: 02/14/19 21:32 Dose: 250 mls/hr Insulin Aspart (Novolog Vial Sliding Scale -) 1 vial SQ [facility]; Protocol Last Admin: 02/15/19 06:01 Dose: Not Given Insulin Detemir (Levemir Vial) 10 units SQ [facility] Last Admin: 02/14/19 21:27 Dose: 10 units Lisinopril (Prinivil) 5 mg PO DAILY [facility] Last Admin: 02/14/19 10:21 Dose: 5 mg Sertraline HCl (Zoloft -) 50 mg PO BID [facility] Last Admin: 02/14/19 21:23 Dose: 50 mg - Objective Vital Signs: Vital Signs Temperature 97.7 F 02/14/19 20:36 Pulse Rate 84 02/14/19 20:36 Respiratory Rate 20 02/14/19 20:36 Blood Pressure 140/109 H 02/14/19 20:36 O2 Sat by Pulse Oximetry (%) 96 02/14/19 20:36 Constitutional: Yes: No Distress, Calm Eyes: No: Sclera Icterus HENT: No: Nasal Congestion Cardiovascular: Yes: Regular Rate and Rhythm, JVD, S1, S2, Other (PMI non diplaced). No: Gallop, Murmur Respiratory: Yes: CTA Bilaterally, Rales (faint L base). No: Accessory Muscle Use, Wheezes Gastrointestinal: Yes: Normal Bowel Sounds, Soft. No: Tenderness Musculoskeletal: Yes: Other (No kyphosis) Extremities: No: Cold, Cyanosis Edema: No Integumentary: No: Jaundice Neurological: Yes: Alert. No: Seizure Psychiatric: No: Agitated Labs: CBC, BMP 02/14/19 06:05 02/15/19 06:00 INR, PTT INR 1.71 (0.83-1.09) H 02/14/19 06:05 Assessment/Plan ECG: AF, LAFB, LVH with repol abnormality, PVC. no ischemic changes CXR: congestive changes, L infiltrate, no effusions Echo 05/06: mild LVH. nl LVEF. nl RV. mod MR tele: AF rates controlled acute CHF, L lung infiltrate: -prior echo, type of CHF unknown--suspect systolic given carvedilol/lisinopril regimen at home -BNP 10K here -no known CAD history. trop 0.14--f/u serial trend. ECG non-ischemic -normal temps, WBC--observe infiltrate with diuresis -started lasix 40 IV daily--wt down slightly, lung exam improved. BUN/creat up slightly, LFTs improving (likely congestive etiology). + JVD persists. change lasix to 40 iv bid, trend bun/creat renal insufficiency: -bun/creat 43/1.5 on admit -suspect cardiorenal syndrome contributing--observe trend with diuresis elevated transaminases: -? hepatic congestion -observe trend with diuresis -further w/u and plan per hospitalist Afib: -rapid HR here, ? triggering CHF--improved with carvedilol 9.375 bid + diuresis -controlled as outpt on diltiazem CD 240 qd, with prior intolerance of metoprolol--change carvedilol to home dilt regimen -monitor tele -if rapid rates once back on home regimen and better diuresed, will add low dose carvedilol (for bp as well) -cont home Eliquis (5 bid)--if creatinine remains > 1.5 will need to reduce dose to 2.5 prior to discharge HTN: -cont home lisinopril, diltiazem -observe trend dementia: -sees neuro as outpt
[2019-02-15] MEDS: FUROSEMIDE 40 MG/4 ML INJECTABLE VIAL IVPUSH SCH ×2 (10:41→17:16)
[2019-02-15] MEDS: SERTRALINE HCL 50 MG TABLET (FP) PO SCH ×2 (10:41→22:23)
[2019-02-15] MEDS: APIXABAN 5 MG TABLET PO SCH ×2 (10:41→22:23)
[2019-02-15] MEDS: LISINOPRIL 5 MG TABLET (FP) PO SCH (10:41)
--- NOTE | 2019-02-15 13:16 | PN ---
Physical Exam: SUBJECTIVE: Patient seen and examined in the morning. No complaints of chest pain, shortness of breath, nausea, vomiting, diarrhea, fever, or weakness. OBJECTIVE: Vital Signs Period Temp Pulse Resp BP Sys/Garcai Pulse Ox Last 24 Hr 97.7 F-98.9 F 79-90 20-20 130-153/81-109 96-96 GENERAL: The patient is awake and alert to self and place. Not in distress. HEAD: Normal with no signs of trauma. LUNGS: Breath sounds equal, clear to auscultation bilaterally, no wheezes. HEART: Irregularly irregular, no murmurs rubs or gallops ABDOMEN: Soft, nontender, nondistended, normoactive bowel sounds. EXTREMITIES: 2+ pulses, warm, well-perfused, 2+ edema in b/l lower extremities. Laboratory Results - last 24 hr 02/14/19 02/14/19 02/14/19 09:20 15:40 16:42 Sodium Potassium Chloride Carbon Dioxide Anion Gap BUN Creatinine Est GFR (CKD-EPI)AfAm Est GFR (CKD-EPI)NonAf POC Glucometer 221 Random Glucose Calcium Total Bilirubin Direct Bilirubin AST ALT Alkaline Phosphatase Creatine Kinase 71 Troponin I 0.30 H Total Protein Albumin Hep A IgM Ab Confirm Negative Hep Bs Antigen Negative Hep B Core IgM Ab Negative Hepatitis C Ab (EIA) <0.1 02/14/19 02/14/19 02/15/19 20:30 21:27 05:40 Sodium Potassium Chloride Carbon Dioxide Anion Gap BUN Creatinine Est GFR (CKD-EPI)AfAm Est GFR (CKD-EPI)NonAf POC Glucometer 142 125 Random Glucose Calcium Total Bilirubin Direct Bilirubin AST ALT Alkaline Phosphatase Creatine Kinase 67 Troponin I 0.32 H Total Protein Albumin Hep A IgM Ab Confirm Hep Bs Antigen Hep B Core IgM Ab Hepatitis C Ab (EIA) 02/15/19 02/15/19 06:00 11:59 Sodium 142 Potassium 4.2 Chloride 109 H Carbon Dioxide 24 Anion Gap 9 BUN 61.2 H Creatinine 1.6 H Est GFR (CKD-EPI)AfAm 33.23 Est GFR (CKD-EPI)NonAf 28.67 POC Glucometer 93 Random Glucose 110 H Calcium 8.3 L Total Bilirubin 0.5 Direct Bilirubin 0.2 AST 111 H ALT 160 H Alkaline Phosphatase 130 H Creatine Kinase 53 Troponin I 0.24 H Total Protein 6.1 L Albumin 2.8 L Hep A IgM Ab Confirm Hep Bs Antigen Hep B Core IgM Ab Hepatitis C Ab (EIA) Active Medications Generic Name Dose Route Start Last Admin Trade Name Freq PRN Reason Stop Dose Admin Alprazolam 0.25 mg 02/14/19 22:00 02/14/19 21:23 Xanax - PO 0.25 mg HS DAVID Administration Apixaban 5 mg 02/14/19 10:00 02/15/19 10:41 Eliquis - PO 5 mg BID DAVID Administration Diltiazem HCl 240 mg 02/15/19 10:00 02/15/19 10:41 Cardizem Cd - PO 240 mg DAILY DAVID Administration Donepezil HCl 10 mg 02/14/19 22:00 02/14/19 21:23 Aricept - PO 10 mg HS DAVID Administration Furosemide 40 mg 02/15/19 10:15 02/15/19 10:41 Lasix Injection - IVPUSH 40 mg BID@0600,1800 DAVID Administration Azithromycin 500 mg in 250 mls @ 250 mls/hr 02/14/19 22:00 02/14/19 21:32 Zithromax 500mg Ivpb (Pre-Docked) IVPB 250 mls/hr HS DAVID Administration Insulin Aspart 1 vial 02/14/19 14:32 02/15/19 12:44 Novolog Vial Sliding Scale - SQ Not Given [facility] Protocol Insulin Detemir 10 units 02/14/19 22:00 02/14/19 21:27 Levemir Vial SQ 10 units HS DAVID Administration Lisinopril 5 mg 02/14/19 10:00 02/15/19 10:41 Prinivil PO 5 mg DAILY DAVID Administration Sertraline HCl 50 mg 02/14/19 10:00 02/15/19 10:41 Zoloft - PO 50 mg BID DAVID Administration ASSESSMENT/PLAN: 88 F PMH of dementia, CHF, HTN, HLD, DM2, Afib (on Eliquis) presents with shortness of breath and orthopnea 1)Acute decompensation of CHF -[place] [address] -Chest X-ray showed cardiomegaly and congestive changes with a left infiltrate -Echo in 04/2018 shows mild LVH, normal LVEF, normal RV function, moderate mitral regurgitation. -Daily I/O -Follow up Echo tomorrow -Lasix 40 mg IV BID -Lisinopril 5 mg PO Daily 2)Left sided infiltrate -Blood culture pending -Sputum culture to be collected -Urine for legionella negative -Ceftriaxone 1 gram IV Qdaily -Azithromycin 250 mg IV QHS 3) Atrial Fibrillation with RVR -Continue Diltiazem 240 mg PO QDaily -Continue Eliquis 5 mg PO BID 4)DAYAN vs CKD -Baseline Creatinine unavailable -Renal and Bladder US wnl -Creatinine today 1.6 5) Elevated Transaminases -Abdominal US shows hepatomegaly -Hepatitis panel pending -Transaminase should improve with continued treatment of CHF 6)Hx of Dementia -Continue Alprazolam .25 mg PO HS -Continue Sertraline 50 mg PO BID -Continue Donepezil 10 mg PO HS 7)Hx of Diabetes -Sliding scale insulin -Levemir 10 units HS F: Oral hydration E: Monitor CMP N: Sodium controlled diet DVT Prophylaxis: Eliquis 5 mg PO BID Dispo: Admitted to telemetry Visit type - Emergency Visit Emergency Visit: Yes ED Registration Date: 02/13/19 Care time: The patient presented to the Emergency Department on the above date and was hospitalized for further evaluation of their emergent condition. - New Patient This patient is new to me today: Yes Date on this admission: 02/15/19 - Critical Care Critical Care patient: No ATTENDING PHYSICIAN STATEMENT I saw and evaluated the patient. I reviewed the resident's note and discussed the case with the resident. I agree with the resident's findings and plan as documented. SUBJECTIVE: OBJECTIVE: ASSESSMENT AND PLAN:
--- NOTE | 2019-02-15 13:22 | PN ---
Teaching Attending Note Name of Resident: Karina Soto ATTENDING PHYSICIAN STATEMENT I saw and evaluated the patient. I reviewed the resident's note and discussed the case with the resident. I agree with the resident's findings and plan as documented. SUBJECTIVE: Feels well - no complaints. Denies cough/sputum/CP/palpitations/SOB. OBJECTIVE: Afebrile, Hemodynamically Stable. AAO x 2. Last Vital Signs Temp Pulse Resp BP Pulse Ox 98.2 F 79 20 153/88 96 02/15/19 10:00 02/15/19 10:00 02/15/19 10:00 02/15/19 10:00 02/15/19 09:00 HEENT - Atraumatic, Normocephalic. Heart - S1, S2, irregular Lungs - good air entry bilaterally, mildly reduced at bases. Abdomen - soft, non-tender. Bowel Sounds normal. Extremities - chronic venous stasis with skin changes, edema ++ Laboratory Results - last 24 hr 02/14/19 02/14/19 02/14/19 09:20 15:40 16:42 Sodium Potassium Chloride Carbon Dioxide Anion Gap BUN Creatinine Est GFR (CKD-EPI)AfAm Est GFR (CKD-EPI)NonAf POC Glucometer 221 Random Glucose Calcium Total Bilirubin Direct Bilirubin AST ALT Alkaline Phosphatase Creatine Kinase 71 Troponin I 0.30 H Total Protein Albumin Hep A IgM Ab Confirm Negative Hep Bs Antigen Negative Hep B Core IgM Ab Negative Hepatitis C Ab (EIA) <0.1 02/14/19 02/14/19 02/15/19 20:30 21:27 05:40 Sodium Potassium Chloride Carbon Dioxide Anion Gap BUN Creatinine Est GFR (CKD-EPI)AfAm Est GFR (CKD-EPI)NonAf POC Glucometer 142 125 Random Glucose Calcium Total Bilirubin Direct Bilirubin AST ALT Alkaline Phosphatase Creatine Kinase 67 Troponin I 0.32 H Total Protein Albumin Hep A IgM Ab Confirm Hep Bs Antigen Hep B Core IgM Ab Hepatitis C Ab (EIA) 02/15/19 02/15/19 06:00 11:59 Sodium 142 Potassium 4.2 Chloride 109 H Carbon Dioxide 24 Anion Gap 9 BUN 61.2 H Creatinine 1.6 H Est GFR (CKD-EPI)AfAm 33.23 Est GFR (CKD-EPI)NonAf 28.67 POC Glucometer 93 Random Glucose 110 H Calcium 8.3 L Total Bilirubin 0.5 Direct Bilirubin 0.2 AST 111 H ALT 160 H Alkaline Phosphatase 130 H Creatine Kinase 53 Troponin I 0.24 H Total Protein 6.1 L Albumin 2.8 L Hep A IgM Ab Confirm Hep Bs Antigen Hep B Core IgM Ab Hepatitis C Ab (EIA) Current Medications Generic Name Dose Route Start Last Admin Trade Name Amarjitq PRN Reason Stop Dose Admin Alprazolam 0.25 mg 02/14/19 22:00 02/14/19 21:23 Xanax - PO 0.25 mg HS DAVID Administration Apixaban 5 mg 02/14/19 10:00 02/15/19 10:41 Eliquis - PO 5 mg BID DAVID Administration Diltiazem HCl 240 mg 02/15/19 10:00 02/15/19 10:41 Cardizem Cd - PO 240 mg DAILY DAVID Administration Donepezil HCl 10 mg 02/14/19 22:00 02/14/19 21:23 Aricept - PO 10 mg HS DAVID Administration Furosemide 40 mg 02/15/19 10:15 02/15/19 10:41 Lasix Injection - IVPUSH 40 mg BID@0600,1800 DAVID Administration Azithromycin 500 mg in 250 mls @ 250 mls/hr 02/14/19 22:00 02/14/19 21:32 Zithromax 500mg Ivpb (Pre-Docked) IVPB 250 mls/hr HS DAVID Administration Ceftriaxone Sodium 1 gm/ 50 mls @ 200 mls/hr 02/15/19 13:15 Dextrose IVPB DAILY [facility] Protocol Insulin Aspart 1 vial 02/14/19 14:32 02/15/19 12:44 Novolog Vial Sliding Scale - SQ Not Given ACHS [facility] Protocol Insulin Detemir 10 units 02/14/19 22:00 02/14/19 21:27 Levemir Vial SQ 10 units HS DAVID Administration Lisinopril 5 mg 02/14/19 10:00 02/15/19 10:41 Prinivil PO 5 mg DAILY DAVID Administration Sertraline HCl 50 mg 02/14/19 10:00 02/15/19 10:41 Zoloft - PO 50 mg BID DAVID Administration Home Medications Medication Instructions Recorded Alprazolam 0.25 mg PO HS 02/14/19 Apixaban [Eliquis] 5 mg PO BID 02/14/19 Diltiazem HCl [Diltiazem ER] 240 mg PO DAILY 02/14/19 Donepezil HCl [Aricept -] 10 mg PO DAILY 02/14/19 Furosemide [Lasix -] 40 mg PO DAILY 02/14/19 Glimepiride [Amaryl -] 4 mg PO BID 02/14/19 Lisinopril [Prinivil] 5 mg PO DAILY 02/14/19 Metformin HCl [Glucophage] 500 mg PO BID 02/14/19 Potassium Chloride [K-Tab ER] 20 meq PO BID 02/14/19 Saxagliptin HCl [Onglyza] 5 mg PO DAILY 02/14/19 Sertraline HCl [Zoloft -] 50 mg PO BID 02/14/19 ASSESSMENT/PLAN: 88 year old female with a past medical history of Dementia, CHF, HTN, HLD, DM 2 , Atrial fibrillation (on Eliquis), presented with worsening SOB and orthopnea. 1. Acute decompensation of CHF (unknown diastolic vs systolic) BNP > 10,000 CXR - cardiomegaly, congestive changes, L sided infiltrate. On Lasix 40mg daily at home, clams compliance. IV Lasix increased to 40mg IV BID by Cardio. Will monitor renal function, daily weight, I/Os. Echo requested Resumed on home dose Cardizem and SAY-I. Cardio following. 2. CAP CXR - L lung opacity/consolidation Afebrile, without leukocytosis Blood Cx negative Continue Ceftriaxone/Azithromycin 3. Atrial fibrillation with RVR ECG - Atrial fibrillation with RVR, no acute changes. resmed on home rate control medication Cardizem. Continue Eliquis Troponin egression likely sec to demand due to RVR - TnI max 0.32. Further Ix as per Cardiology. 4. DAYAN vs CKD, suspect CKD Creat 1.6 - baseline Creat unknown Monitor renal function on IV Lasix Renal/Bladder US - normal. 5. Elevated Transaminases ?sec to Hepatic congestion - improving with diuresis. US Abdomen - Mild hepatomegaly. Hepatitis panel negative 6. Dementia with Depression - continue Alprazolam, Sertraline, Aricept. 7. DM 2 - hold Saxagliptin, Metformin, Glimepiride. Maintain on sliding scale Novolog - higher tier due to high BGMs. 8. HTN - OnCardizem and Lisinopril - continue. DVT Px - on Eliquis.
[2019-02-15] MEDS ORDERED: cefTRIAXone SODIUM 1 GM VIAL ONE (14:06)
[2019-02-15] MEDS ORDERED: DEXTROSE 5%-WATER - 50 ML IVPB ONE (14:06)
[2019-02-15] MEDS: CEFTRIAXONE 1 GM in DEXTROSE 5%-WATER - 50 ML IVPB SCH (14:16)
[2019-02-15] MEDS: ALPRAZolam 0.25 MG TABLET PO SCH (22:23)
[2019-02-15] MEDS: DONEPEZIL HCL 10 MG TABLET (FP) PO SCH (22:23)
[2019-02-15] MEDS: AZITHROMYCIN IVPB 500 MG/250 ML BAG IVPB SCH (22:23)
[2019-02-15] MEDS: INSULIN (LEVEMIR) 100 UNITS/ML UNITS SQ SCH (22:31)
[2019-02-16] MEDS: FUROSEMIDE 40 MG/4 ML INJECTABLE VIAL IVPUSH SCH (06:22)
[2019-02-16] MEDS: INSULIN SLIDING SCALE (NOVOLOG) 1 VIAL SQ SCH ×2 (06:22→11:20)
[2019-02-16 06:58] LABS: BASO % 0.3 % (0-2.0); EOS % 0.7 % (0-4.5); HEMATOCRIT 30.6 % (32.4-45.2); HEMOGLOBIN 10.2 GM/dL (10.7-15.3); LYMPH % 9.7 % (8-40); MCHC 33.4 g/dl (32.0-36.0); MEAN CELL VOLUME 80.8 fl (80-96); MEAN PLT VOLUME 8.9 fl (7.5-11.1); MONO % 6.8 % (3.8-10.2); NEUT % 82.5 % (42.8-82.8); PLATELET COUNT 291 K/MM3 (134-434); RBC 3.79 M/mm3 (3.60-5.2); RDW 15.3 % (11.6-15.6); WHITE BLOOD COUNT 9.7 K/mm3 (4.0-10.0)
[2019-02-16 07:22] LABS: BLOOD UREA NITROGEN 45.8 mg/dL (7-18); CALCIUM 8.5 mg/dL (8.5-10.1); POTASSIUM 3.1 mmol/L (3.5-5.1)
[2019-02-16 09:26] LABS: ALBUMIN 2.8 g/dl (3.4-5.0); BILIRUBIN,DIRECT 0.2 mg/dL (0.0-0.2); BILIRUBIN,TOTAL 0.5 mg/dL (0.2-1); TOT PROT 6.1 g/dl (6.4-8.2)
--- NOTE | 2019-02-16 09:29 | PN ---
Progress Note, Physician Chief Complaint: sob History of Present Illness: no sob, PND legs swollen no palp, cp - Current Medication List Current Medications: Active Medications Alprazolam (Xanax -) 0.25 mg PO [facility] Last Admin: 02/15/19 22:23 Dose: 0.25 mg Apixaban (Eliquis -) 5 mg PO BID [facility] Last Admin: 02/15/19 22:23 Dose: 5 mg Diltiazem HCl (Cardizem Cd -) 240 mg PO DAILY [facility] Last Admin: 02/15/19 10:41 Dose: 240 mg Donepezil HCl (Aricept -) 10 mg PO HS [facility] Last Admin: 02/15/19 22:23 Dose: 10 mg Furosemide (Lasix Injection -) 40 mg IVPUSH BID@0600,1800 [facility] Last Admin: 02/16/19 06:22 Dose: 40 mg Azithromycin (Zithromax 500mg Ivpb (Pre-Docked)) 500 mg in 250 mls @ 250 mls/ hr IVPB [facility] Last Admin: 02/15/19 22:23 Dose: 250 mls/hr Ceftriaxone Sodium 1 gm/ (Dextrose) 50 mls @ 100 mls/hr IVPB DAILY [facility]; Protocol Last Admin: 02/15/19 14:16 Dose: 100 mls/hr Insulin Aspart (Novolog Vial Sliding Scale -) 1 vial SQ [facility]; Protocol Last Admin: 02/16/19 06:22 Dose: Not Given Insulin Detemir (Levemir Vial) 10 units SQ [facility] Last Admin: 02/15/19 22:31 Dose: 10 units Lisinopril (Prinivil) 5 mg PO DAILY [facility] Last Admin: 02/15/19 10:41 Dose: 5 mg Potassium Chloride (K-Dur -) 40 meq PO BID [facility] Stop: 02/16/19 22:01 Sertraline HCl (Zoloft -) 50 mg PO BID [facility] Last Admin: 02/15/19 22:23 Dose: 50 mg - Objective Vital Signs: Vital Signs Temperature 98.5 F 02/15/19 20:08 Pulse Rate 83 02/15/19 20:08 Respiratory Rate 20 02/15/19 20:08 Blood Pressure 116/82 02/15/19 20:08 O2 Sat by Pulse Oximetry (%) 94 L 02/15/19 20:08 Constitutional: Yes: Well Nourished, No Distress, Calm Cardiovascular: Yes: Pulse Irregular, S1, S2. No: Gallop, Murmur Respiratory: Yes: Regular, CTA Bilaterally. No: Accessory Muscle Use, Rales, Wheezes Extremities: No: Cold Edema: Yes (1-2+ ankles) Neurological: Yes: Alert. No: Seizure Psychiatric: No: Agitated Labs: CBC, BMP 02/16/19 06:20 02/16/19 06:20 INR, PTT INR 1.71 (0.83-1.09) H 02/14/19 06:05 Assessment/Plan ECG: AF, LAFB, LVH with repol abnormality, PVC. no ischemic changes CXR: congestive changes, L infiltrate, no effusions Echo 05/06: mild LVH. nl LVEF. nl RV. mod MR tele: AF, rates controlled acute CHF, L lung infiltrate: -prior echo, type of CHF unknown--suspect systolic given carvedilol/lisinopril regimen at home -BNP 10K here -no known CAD history. trop 0.14--f/u serial trend. ECG non-ischemic -normal temps, WBC--observe infiltrate with diuresis -changed lasix 40 iv qd to bid 02/15--no wt. bun/creat much improved, LFTs stable. repeat CXR has cleared. change to lasix 40 po bid (on 40 qd at home) renal insufficiency: -bun/creat 43/1.5 on admit -suspect cardiorenal syndrome contributing--observe trend with diuresis elevated transaminases: -? hepatic congestion -observe trend with diuresis -further w/u and plan per hospitalist elevated troponin: -no ECG changes, flat trend/indeterminate enzymes c/w CHF, not ACS Afib: -rapid HR here initially--? if med adherence at home (list provided to ER does not match home list) -controlled as outpt on diltiazem CD 240 qd, changed from carvedilol with good control -monitor tele -cont home Eliquis (5 bid)--if creatinine remains > 1.5 will need to reduce dose to 2.5 prior to discharge HTN: -cont home lisinopril, diltiazem -mildly elevated at times, other times low normal--same meds for now dementia: -sees neuro as outpt
[2019-02-16] MEDS ORDERED: POTASSIUM CHLORIDE TABS 20 MEQ TABLET.ER (FP) PO SCH (10:00)
--- NOTE | 2019-02-16 10:40 | EKG ---
Test Reason : Blood Pressure : / mmHG Vent. Rate : 089 BPM Atrial Rate : 075 BPM P-R Int : 000 ms QRS Dur : 108 ms QT Int : 408 ms P-R-T Axes : 000 -57 110 degrees QTc Int : 496 ms ATRIAL FIBRILLATION WITH PREMATURE VENTRICULAR OR ABERRANTLY CONDUCTED COMPLEXES LEFT AXIS DEVIATION NONSPECIFIC T WAVE ABNORMALITY PROLONGED QT ABNORMAL ECG WHEN COMPARED WITH ECG OF 13-FEB-2019 20:58, VENT. RATE HAS DECREASED BY 55 BPM Confirmed by HE GOLDSTEIN, BRITNEY ([id number]) on 02/16/2019 10:39:51 AM Referred By: Karissa CLEMENT Confirmed By:BRITNEY CUTLER MD
[2019-02-16] MEDS ORDERED: cefTRIAXone SODIUM 1 GM VIAL ONE (11:05)
[2019-02-16] MEDS ORDERED: DEXTROSE 5%-WATER - 50 ML IVPB ONE (11:05)
[2019-02-16] MEDS: LISINOPRIL 5 MG TABLET (FP) PO SCH (11:16)
[2019-02-16] MEDS: CEFTRIAXONE 1 GM in DEXTROSE 5%-WATER - 50 ML IVPB SCH (11:16)
[2019-02-16] MEDS: APIXABAN 5 MG TABLET PO SCH (11:16)
[2019-02-16] MEDS: SERTRALINE HCL 50 MG TABLET (FP) PO SCH (11:16)
--- NOTE | 2019-02-16 11:34 | EKG ---
Test Reason : Blood Pressure : / mmHG Vent. Rate : 144 BPM Atrial Rate : 080 BPM P-R Int : 000 ms QRS Dur : 106 ms QT Int : 322 ms P-R-T Axes : 000 -63 104 degrees QTc Int : 498 ms ATRIAL FIBRILLATION WITH RAPID VENTRICULAR RESPONSE WITH PREMATURE VENTRICULAR OR ABERRANTLY CONDUCTED COMPLEXES INCOMPLETE RIGHT BUNDLE BRANCH BLOCK LEFT ANTERIOR FASCICULAR BLOCK MODERATE VOLTAGE CRITERIA FOR LVH, MAY BE NORMAL VARIANT CANNOT RULE OUT SEPTAL INFARCT , AGE UNDETERMINED ABNORMAL ECG NO PREVIOUS ECGS AVAILABLE Confirmed by HE GOLDSTEIN, BRITNEY ([id number]) on 02/16/2019 11:34:24 AM Referred By: Confirmed By:BRITNEY CUTLER MD
[2019-02-16 13:20] VITALS: TEMP 98.4
[2019-02-16] MEDS ORDERED: FUROSEMIDE 40 MG TABLET (FP) PO SCH (14:00)
--- NOTE | 2019-02-16 14:04 | DS ---
Physical Exam: SUBJECTIVE: Patient seen and examined in the morning. No acute events overnight. No complaints of chest pain, shortness of breath, abdominal pain, nausea, vomiting, fevers. OBJECTIVE: Vital Signs Period Temp Pulse Resp BP Sys/Garcia Pulse Ox Last 24 Hr 97.6 F-98.5 F 57-83 20-20 116-155/74-96 94-98 PHYSICAL EXAM GENERAL: The patient is awake, alert, oriented to person. HEAD: Normal with no signs of trauma. EYES: PERRL, extraocular movements intact, sclera anicteric, conjunctiva clear. LUNGS: Breath sounds equal, clear to auscultation bilaterally. HEART: Regular rate and rhythm, S1, S2 without murmur, rub or gallop. ABDOMEN: Soft, nontender, nondistended, normoactive bowel sounds. EXTREMITIES: 2+ pulses, warm, well-perfused, no edema. NEUROLOGICAL: Cranial nerves II through XII grossly intact SKIN: Warm, dry, normal turgor, no rashes or lesions noted. LABS Laboratory Results - last 24 hr 02/15/19 02/15/19 02/15/19 16:08 16:48 22:22 WBC RBC Hgb Hct MCV MCH MCHC RDW Plt Count MPV Absolute Neuts (auto) Neutrophils % Lymphocytes % Monocytes % Eosinophils % Basophils % Nucleated RBC % Sodium Potassium Chloride Carbon Dioxide Anion Gap BUN Creatinine Est GFR (CKD-EPI)AfAm Est GFR (CKD-EPI)NonAf POC Glucometer 107 213 Random Glucose Calcium Total Bilirubin Direct Bilirubin AST ALT Alkaline Phosphatase Creatine Kinase 55 Total Protein Albumin 02/16/19 02/16/19 02/16/19 06:18 06:20 06:20 WBC 9.7 RBC 3.79 Hgb 10.2 L Hct 30.6 L MCV 80.8 MCH 27.0 MCHC 33.4 RDW 15.3 Plt Count 291 MPV 8.9 Absolute Neuts (auto) 8.0 Neutrophils % 82.5 Lymphocytes % 9.7 Monocytes % 6.8 Eosinophils % 0.7 D Basophils % 0.3 Nucleated RBC % 0 Sodium 144 Potassium 3.1 L Chloride 109 H Carbon Dioxide 27 Anion Gap 8 BUN 45.8 H Creatinine 1.0 Est GFR (CKD-EPI)AfAm 58.66 Est GFR (CKD-EPI)NonAf 50.61 POC Glucometer 71 Random Glucose 66 L Calcium 8.5 Total Bilirubin 0.5 Direct Bilirubin 0.2 AST 109 H ALT 167 H Alkaline Phosphatase 132 H Creatine Kinase Total Protein 6.1 L Albumin 2.8 L 02/16/19 11:20 WBC RBC Hgb Hct MCV MCH MCHC RDW Plt Count MPV Absolute Neuts (auto) Neutrophils % Lymphocytes % Monocytes % Eosinophils % Basophils % Nucleated RBC % Sodium Potassium Chloride Carbon Dioxide Anion Gap BUN Creatinine Est GFR (CKD-EPI)AfAm Est GFR (CKD-EPI)NonAf POC Glucometer 194 Random Glucose Calcium Total Bilirubin Direct Bilirubin AST ALT Alkaline Phosphatase Creatine Kinase Total Protein Albumin HOSPITAL COURSE: Date of Admission:02/13/19 Date of Discharge: 02/16/19 88 F PMH of dementia, CHF, HTN, HLD, DM2, Afib (on Eliquis) presents with shortness of breath and orthopnea. Patient was found to have elevated BNP on admission, with cardiomegaly, congestive changes, and left sided infiltrate found on chest x-ray. Patient was diuresed with IV lasix. Echo was negative. Patient was noted to have left lung opacity and consolidation on chest x-ray, was afebrile during admission but was given Ceftriaxone and Azithromycin. Patient was noted to have Afib with RVR, was controlled with home medication of Cardizem. Patient was discharged on Lasix 40 mg PO BID, with follow up within 1 week with research professional. Imaging done this admission: Chest X-Ray: Large heart, congestive changes, left infiltrate. Abdomen/Renal/Bladder U/S: Mild right hydronephrosis, small amount of debris in gallbladder, b/l pleural effusions, possible trace ascites. Chest X-Ray: Improvement. Echocardiogram: 35-40% EF, mild mitral valve thickening, mild mitral annular calcification, moderate mitral regurgitation, moderate tricuspid regurgitation, moderate to severe aortic thickening. Minutes to complete discharge: 30 Discharge Summary Problems reviewed: Yes Reason For Visit: ACUTE ON CHRONIC CONGESTIVE HEART FALURE Condition: Improved - Instructions Diet, Activity, Other Instructions: You were seen in the hospital for complaints of increased weakness and shortness of breath. A chest xray was done that showed some congestive changes as well as a left infiltrate, concerning for possible pneumonia. You were treated with IV diuretics to help relieve your lung congetion and also given a dose of IV antibiotics to treat your possible pneumonia. A repeat chest xray was done that showed improvement and resolution of the infiltrate. Additionally , you were evaluated by the research professional with recommendation to increase your home Lasix dose to twice a day. You are now stable for discharge back home. MEDICATIONS We have made the following changes to your medication regimen: Please START taking Lasix 40 mg twice a day by mouth. Please continue taking the rest of your home medications as prescribed. FOLLOW UP Please follow up with your primary care physician, Dr. Santiago, within 1 week. You will need repeat blood work to check your kidney function (BMP). Please follow up with your research professional, Dr. Michelle, within 1 week. Referrals: Anders Michelle MD [Staff Physician] - 1 Week Lee Santiago MD [Primary Care Provider] - 1 Week Disposition: HOME - Home Medications Comprehensive Discharge Medication List: Ambulatory Orders Alprazolam 0.25 mg PO HS 02/14/19 Apixaban [Eliquis] 5 mg PO BID 02/14/19 Diltiazem HCl [Diltiazem 24Hr ER] 240 mg PO DAILY 02/14/19 Donepezil HCl [Aricept -] 10 mg PO DAILY 02/14/19 Glimepiride [Amaryl -] 4 mg PO BID 02/14/19 Lisinopril [Prinivil] 5 mg PO DAILY 02/14/19 Metformin HCl [Glucophage] 500 mg PO BID 02/14/19 Potassium Chloride [K-Tab ER] 20 meq PO BID 02/14/19 Saxagliptin HCl [Onglyza] 5 mg PO DAILY 02/14/19 Sertraline HCl [Zoloft -] 50 mg PO BID 02/14/19 Furosemide [Lasix -] 40 mg PO BID@0600,1400 #60 tablet 02/16/19 This patient is new to me today: No Emergency Visit: Yes ED Registration Date: 02/13/19 Care time: The patient presented to the Emergency Department on the above date and was hospitalized for further evaluation of their emergent condition. Critical Care patient: No - Discharge Referral Referred to [facility] Med P.C.: No ATTENDING PHYSICIAN STATEMENT I saw and evaluated the patient. I reviewed the resident's note and discussed the case with the resident. I agree with the resident's findings and plan as documented. SUBJECTIVE: OBJECTIVE: ASSESSMENT AND PLAN:
--- NOTE | 2019-02-16 15:20 | ECHO ---
Name: SUZETTE KOWALSKI Exam:Adult Echocardiogram Study Date: 02/16/2019 10:05 AM Age: 88 yrs Reason For Study: CHF Height: 66 in Weight: 140 lb BSA: 1.7 m2 MMode/2D Measurements & Calculations IVSd: 1.1 cm Ao root diam: 2.8 cm LVIDd: 3.7 cm LA dimension: 4.8 cm LVIDs: 3.1 cm ACS: 1.7 cm LVPWd: 1.5 cm EDV(Teich): 58.5 ml LVOT diam: 1.8 cm ESV(Teich): 39.0 ml LVLd ap4: 6.9 cm SV(MOD-sp4): 18.0 ml EDV(MOD-sp4): 51.0 ml LVLs ap4: 5.7 cm ESV(MOD-sp4): 33.0 ml Doppler Measurements & Calculations MV E max phill: 121.4 cm/sec Ao V2 max: 222.9 cm/sec MV A max phill: 47.3 cm/sec Ao max P.9 mmHg MV E/A: 2.6 Ao V2 mean: 175.3 cm/sec MV dec time: 0.20 sec Ao mean P.5 mmHg Ao V2 VTI: 53.7 cm JOSSY(I,D): 0.73 cm2 JOSSY(V,D): 0.82 cm2 LV V1 max P.9 mmHg MR max phill: 560.2 cm/sec LV V1 mean P.2 mmHg MR max P.5 mmHg LV V1 max: 69.6 cm/sec LV V1 mean: 51.5 cm/sec LV V1 VTI: 14.9 cm SV(LVOT): 38.9 ml TR max phill: 228.4 cm/sec TR max P.2 mmHg PI end-d phill: 115.4 cm/sec Med Peak E' Phill: 5.5 cm/sec Med E/e': 22.1 Lat Peak E' Phill: 6.7 cm/sec Lat E/e': 18.1 Procedure A complete two-dimensional transthoracic echocardiogram was performed (2D, M-mode, Doppler and color flow Doppler). Left Ventricle The left ventricle is normal in size. Left ventricular systolic function is moderately reduced. Eject ion Fraction = 35-40%. TDI reveals elevated filling pressure. There is moderate global hypokinesis of the left ventricle. Right Ventricle The right ventricle is normal size. The right ventricular systolic function is normal. RV systolic TD I is 11 cm/s. Atria The left atrium is moderately dilated. Right atrial size is normal. Mitral Valve There is mild mitral valve thickening. There is mild mitral annular calcification. There is moderate mitral regurgitation. Tricuspid Valve The tricuspid valve is normal in structure and function. There is moderate tricuspid regurgitation. P ulmonary artery systolic pressure is at least 42 mmHg if RA pressure is assumed 8 mmHg with dilated IVC. Aortic Valve There is moderate to severe aortic valve thickening. Moderate to severe valvular aortic stenosis. The calculated aortic valve area using the continuity equation is 0.8 cm2. DI (dimensionless index) is 0. 27. No aortic regurgitation is present. Pulmonic Valve The pulmonic valve is not well visualized. Great Vessels The aortic root is normal size. Pericardium/Pleura There is no pericardial effusion. Interpretation Summary The left ventricle is normal in size. Left ventricular systolic function is moderately reduced. There is moderate global hypokinesis of the left ventricle. Ejection Fraction = 35-40%. TDI reveals elevated filling pressure The right ventricular systolic function is normal. The left atrium is moderately dilated. Right atrial size is normal. There is mild mitral valve thickening. There is mild mitral annular calcification. There is moderate mitral regurgitation. There is moderate tricuspid regurgitation. Pulmonary artery systolic pressure is at least 42 mmHg if RA pressure is assumed 8 mmHg with dilated IVC There is moderate to severe aortic valve thickening. Moderate to severe valvular aortic stenosis. The calculated aortic valve area using the continuity equation is 0.8 cm2. DI (dimensionless index) is 0.27 No aortic regurgitation is present. There is no pericardial effusion. Raphael Keenan MD 02/16/2019 03:19 PM
[2019-02-16 15:38] VITALS: BP 138/81; PULSE 81
--- NOTE | 2019-02-16 18:13 | PN ---
Teaching Attending Note Name of Resident: Karina Soto ATTENDING PHYSICIAN STATEMENT I saw and evaluated the patient. I reviewed the resident's note and discussed the case with the resident. I agree with the resident's findings and plan as documented. SUBJECTIVE: Feels well - no complaints. Denies cough/sputum/CP/palpitations/ SOB. OBJECTIVE: Afebrile, Hemodynamically Stable. AAO x 2. Laughing and joking with medical team. Hearing impaired - needs hearing aids. Last Vital Signs Temp Pulse Resp BP Pulse Ox 98.4 F 81 20 138/81 98 02/16/19 10:00 02/16/19 15:38 02/16/19 15:38 02/16/19 15:38 02/16/19 09:00 Heart - S1, S2, irregular Lungs - good air entry bilaterally, mildly reduced at bases. Abdomen - soft, non-tender. Bowel Sounds normal. Extremities - chronic venous stasis with skin changes, edema + improved Laboratory Results - last 24 hr 02/15/19 02/16/19 02/16/19 22:22 06:18 06:20 WBC RBC Hgb Hct MCV MCH MCHC RDW Plt Count MPV Absolute Neuts (auto) Neutrophils % Lymphocytes % Monocytes % Eosinophils % Basophils % Nucleated RBC % Sodium 144 Potassium 3.1 L Chloride 109 H Carbon Dioxide 27 Anion Gap 8 BUN 45.8 H Creatinine 1.0 Est GFR (CKD-EPI)AfAm 58.66 Est GFR (CKD-EPI)NonAf 50.61 POC Glucometer 213 71 Random Glucose 66 L Calcium 8.5 Total Bilirubin 0.5 Direct Bilirubin 0.2 AST 109 H ALT 167 H Alkaline Phosphatase 132 H Total Protein 6.1 L Albumin 2.8 L 02/16/19 02/16/19 06:20 11:20 WBC 9.7 RBC 3.79 Hgb 10.2 L Hct 30.6 L MCV 80.8 MCH 27.0 MCHC 33.4 RDW 15.3 Plt Count 291 MPV 8.9 Absolute Neuts (auto) 8.0 Neutrophils % 82.5 Lymphocytes % 9.7 Monocytes % 6.8 Eosinophils % 0.7 D Basophils % 0.3 Nucleated RBC % 0 Sodium Potassium Chloride Carbon Dioxide Anion Gap BUN Creatinine Est GFR (CKD-EPI)AfAm Est GFR (CKD-EPI)NonAf POC Glucometer 194 Random Glucose Calcium Total Bilirubin Direct Bilirubin AST ALT Alkaline Phosphatase Total Protein Albumin Discharge Medications Medication Instructions Recorded Alprazolam 0.25 mg PO HS 02/14/19 Apixaban [Eliquis] 5 mg PO BID 02/14/19 Diltiazem HCl [Diltiazem 24Hr ER] 240 mg PO DAILY 02/14/19 Donepezil HCl [Aricept -] 10 mg PO DAILY 02/14/19 Glimepiride [Amaryl -] 4 mg PO BID 02/14/19 Lisinopril [Prinivil] 5 mg PO DAILY 02/14/19 Metformin HCl [Glucophage] 500 mg PO BID 02/14/19 Potassium Chloride [K-Tab ER] 20 meq PO BID 02/14/19 Saxagliptin HCl [Onglyza] 5 mg PO DAILY 02/14/19 Sertraline HCl [Zoloft -] 50 mg PO BID 02/14/19 Furosemide [Lasix -] 40 mg PO BID@0600,1400 #60 tablet 02/16/19 ASSESSMENT/PLAN: 88 year old female with a past medical history of Dementia, CHF, HTN, HLD, DM 2 , Atrial fibrillation (on Eliquis), presented with worsening SOB and orthopnea. 1. Acute decompensation of Systolic CHF (EF 35-40% on Echo) BNP > 10,000 CXR - cardiomegaly, congestive changes, L sided infiltrate. On Lasix 40mg daily at home, claims compliance. IV Lasix transitioned to oral Lasix BID by Cardio due to improvement in clinical condition and adequate diuresis Resumed on home dose Cardizem and SAY-I. Needs close out-patient Cardiology follow up. 2. CAP CXR - L lung opacity/consolidation Afebrile, without leukocytosis Blood Cx negative treated with Ceftriaxone/Azithromycin - for 2 additional days of Abx therapy. 3. Atrial fibrillation with RVR ECG - Atrial fibrillation with RVR, no acute changes. resumed on home rate control medication Cardizem. Continue Eliquis Troponin egression likely sec to demand due to RVR - TnI max 0.32. Further Ix as per Cardiology as out-patient. 4. DAYAN on CKD 3 - Resolved. Renal/Bladder US - normal. 5. Elevated Transaminases ?sec to Hepatic congestion - appears stable. US Abdomen - Mild hepatomegaly. Hepatitis panel negative GI follow up on discharge 6. Dementia with Depression - continue Alprazolam, Sertraline, Aricept. 7. DM 2 - resume Saxagliptin, Metformin, Glimepiride on discharge. 8. HTN - On Cardizem and Lisinopril - continue. 9. Moderate to Severe - for close out-patient Cardio follow up.
--- NOTE | 2019-02-17 12:52 | EKG ---
Test Reason : Blood Pressure : / mmHG Vent. Rate : 138 BPM Atrial Rate : 039 BPM P-R Int : 000 ms QRS Dur : 108 ms QT Int : 290 ms P-R-T Axes : 000 087 -82 degrees QTc Int : 439 ms ATRIAL FIBRILLATION WITH RAPID VENTRICULAR RESPONSE Frequent PVCs. SEPTAL INFARCT , AGE UNDETERMINED MARKED ST ABNORMALITY, POSSIBLE LATERAL SUBENDOCARDIAL INJURY ABNORMAL ECG NO PREVIOUS ECGS AVAILABLE Confirmed by MD REGINALD, LEDA ([id number]) on 02/17/2019 12:51:35 PM Referred By: Confirmed By:LEDA MONTELONGO MD
== END 2019-02-16 15:48 | disposition home or self-care (01) | DRG 291 ==
LOC: JER 17:38 → JERBED 23:06 → J4W 02-14 05:04
PROVIDERS: ADMIT Internal Medicine
DX: I13.0 Hypertensive heart and chronic kidney disease with heart failure and stage 1 through stage 4 chronic kidney disease, or unspecified chronic kidney disease (principal); J18.9 Pneumonia, unspecified organism; I50.23 Acute on chronic systolic (congestive) heart failure; N17.9 Acute kidney failure, unspecified; I24.8 Other forms of acute ischemic heart disease; N13.30 Unspecified hydronephrosis; N18.3 Chronic kidney disease, stage 3 (moderate); I45.10 Unspecified right bundle-branch block; I08.1 Rheumatic disorders of both mitral and tricuspid valves; E11.22 Type 2 diabetes mellitus with diabetic chronic kidney disease; I44.4 Left anterior fascicular block; R16.0 Hepatomegaly, not elsewhere classified; E78.5 Hyperlipidemia, unspecified; F03.90 Unspecified dementia, unspecified severity, without behavioral disturbance, psychotic disturbance, mood disturbance, and anxiety; F32.9 Major depressive disorder, single episode, unspecified; I48.91 Unspecified atrial fibrillation; Z91.14 Patient's other noncompliance with medication regimen
CPT/HCPCS: 36415; 36600; 71045-TC-FY; 76700-TC; 76775-TC; 76856-TC; 80048; 80053; 80074; 80076; 80307; 82550; 82803; 82962; 83735; 83880; 84100; 84484; 85025; 85610; 85730; 87040; 87899; 93005; 93010; 93306-TC; 97116-GP; 97161-GP; 99285-25